=== PATIENT | female | born 1970 | race Caucasian/White ===

== ENCOUNTER 2022-08-09 17:29 | Emergency (ER) | payer BC ==
[2022-08-09] MEDS ORDERED: Orphenadrine 60 MG/2 ML Inj IM ONE (19:08)
[2022-08-09] MEDS ORDERED: Ketorolac 60 MG/2 ML SDV IM ONE (19:08)
== END 2022-08-09 19:54 | disposition home or self-care (01) ==
LOC: MW.ED 17:29
DX: M54.50 Low back pain, unspecified (principal)
CPT/HCPCS: 81001; 96372; 99283; J1885; J2360